=== PATIENT | female | born 1950 | race American Indian/Alaskan Native ===

== ENCOUNTER 2017-07-14 09:19 | Emergency (ER) | payer MEDICARE ==
[2017-07-14 10:45] LABS: Basophils % (Auto) 0.7 % (0.0-1.8); Eosinophils # (Auto) 0.1 K/mm3 (0.0-0.4); Eosinophils % (Auto) 2.6 % (0.0-4.3); Lymphocytes % (Auto) 43.4 % (13.4-35.0); Mean Corpuscular HGB Conc 33 % (30-34); Mean Corpuscular Hemoglobin 29 pg (28-32); Mean Corpuscular Volume 88 fl (79-97); Monocytes # (Auto) 0.3 K/mm3 (0.0-0.8); Monocytes % (Auto) 5.6 % (0.0-7.3); Platelet Count 243 K/mm3 (140-440); Red Blood Count 4.54 M/mm3 (3.65-5.03); Red Cell Distribution Width 15.3 % (13.2-15.2)
[2017-07-14 11:01] LABS: Alanine Aminotransferase 12 units/L (7-56); Albumin 3.9 g/dL (3.9-5); BUN/Creatinine Ratio 13; Blood Urea Nitrogen 10 mg/dL (7-17); Calcium 9.6 mg/dL (8.4-10.2); Hemolysis Index 7
[2017-07-14 11:07] LABS: Free T4 (Free Thyroxine) 1.13 ng/dL (0.76-1.46)
--- NOTE | 2017-07-14 11:33 | Emergency Department Report ---
HPI - General Chief Complaint: Medical Clearance Time Seen by Provider: 07/14/17 11:10 - HPI HPI: Room 5 The patient is a 67-year-old female presenting with chief complaint of itching in her scalp. The patient states for the past 1.5 months she's had itching in her scalp. The patient states she tried [id number] rid of her symptoms did not improve. The patient states she cut her hair 3 weeks ago in attempt to help with her symptoms but it has not improved. Patient states she went to an urgent care facility and started on doxycycline and an antifungal but again her symptoms have not improved. The patient states she saw a sumac tanner 2017 and was scheduled for blood work but has not yet followed up. Denies any history of fever. Patient denies any new body washes or detergents/exposures Location: Scalp Duration: 1.5 months Quality: Pruritic Severity: Moderate Modifying factors: [see above] Context: [see above] Mode of transportation: Unknown ED Past Medical Hx - Past Medical History Previous Medical History?: No - Surgical History Past Surgical History?: No Additional Surgical History: , bilateral tubal ligation - Social History Smoking Status: Current Every Day Smoker (1/3 pack per day) Substance Use Type: None (denies illicit drug use) - Medications Home Medications: Home Medications Medication Instructions Recorded Confirmed Last Taken Type Prednisone [predniSONE 10 mg 10 mg PO .TAPER #1 tab.ds.pk 07/14/17 Unknown Rx (6-Day Pack, 21 Tabs)] diphenhydrAMINE [Benadryl CAP] 50 mg PO Q6H PRN #20 capsule 07/14/17 Unknown Rx ED Review of Systems ROS: Stated complaint: RASH Other details as noted in HPI Constitutional: denies: fever Skin: pruritus Physical Exam - Physical Exam Vital Signs: Vital Signs 07/14/17 09:32 Temperature 97.4 F L Pulse Rate 67 Respiratory 16 Rate Blood Pressure 148/74 Physical Exam: GENERAL: The patient is well-developed well-nourished female sitting on stretcher not appearing to be in acute distress. [] HEENT: Normocephalic. Atraumatic. Extraocular motions are intact. Patient has moist mucous membranes. Scalp is clean shaven. No lesions seen. No posterior auricular lymphadenopathy NECK: Supple. Trachea midline CHEST/LUNGS:There is no respiratory distress noted. SKIN: There is no rash. There is no edema. There is no diaphoresis. NEURO: The patient is awake, alert, and oriented. The patient is cooperative. The patient has normal speech MUSCULOSKELETAL: There is no evidence of acute injury. ED Course Vital Signs 07/14/17 09:32 Temperature 97.4 F L Pulse Rate 67 Respiratory 16 Rate Blood Pressure 148/74 ED Medical Decision Making - Lab Data Result diagrams: 07/14/17 10:21 07/14/17 10:21 Laboratory Tests 07/14/17 07/14/17 07/14/17 10:21 10:21 10:21 WBC 4.6 RBC 4.54 Hgb 13.0 Hct 40.0 MCV 88 MCH 29 MCHC 33 RDW 15.3 H Plt Count 243 Lymph % (Auto) 43.4 H Bracken % (Auto) 5.6 Eos % (Auto) 2.6 Baso % (Auto) 0.7 Lymph # 2.0 Bracken # 0.3 Eos # 0.1 Baso # 0.0 Seg Neutrophils % 47.7 Seg Neutrophils # 2.2 Sodium 142 Potassium 3.6 Chloride 103.1 Carbon Dioxide 26 Anion Gap 17 BUN 10 Creatinine 0.8 Estimated GFR > 60 BUN/Creatinine Ratio 13 Glucose 100 Calcium 9.6 Total Bilirubin 0.40 AST 21 ALT 12 Alkaline Phosphatase 78 Total Protein 7.0 Albumin 3.9 Albumin/Globulin Ratio 1.3 TSH 1.520 Free T4 1.13 - Medical Decision Making Patient advised to follow-up with her sumac tanner for further evaluation - Differential Diagnosis dermatitis, allergic reaction, conversion disorder Critical care attestation.: If time is entered above; I have spent that time in minutes in the direct care of this critically ill patient, excluding procedure time. ED Disposition Clinical Impression: Scalp itch Disposition: DC-01 TO HOME OR SELFCARE Is pt being admited?: No Does the pt Need Aspirin: No Condition: Stable Additional Instructions: Return to the emergency department immediately should you develop worsening symptoms, fever, inability to tolerate food or liquid or any other concerns. Prescriptions: diphenhydrAMINE [Benadryl CAP] 50 mg PO Q6H PRN #20 capsule PRN Reason: Itching Prednisone [predniSONE 10 mg (6-Day Pack, 21 Tabs)] 10 mg PO .TAPER #1 tab.ds.pk Referrals: LINO DIXON [Other] - 3-5 Days your, sumac tanner [Other] - [facility] Time of Disposition: 11:35
[2017-07-14 11:46] VITALS: BP 140/61
== END 2017-07-14 11:46 | disposition home or self-care (01) ==
LOC: ED 09:19
DX: L29.8 Other pruritus (principal); F17.200 Nicotine dependence, unspecified, uncomplicated; Z98.51 Tubal ligation status; Z88.0 Allergy status to penicillin
CPT/HCPCS: 36415; 80053; 82962; 84439; 84443; 85025; 99283